=== PATIENT | female | born 1940 | race Caucasian/White ===

== ENCOUNTER 2019-11-09 13:19 | Inpatient (IN) | payer MEDICARE, OTHER ==
[~2019-11-09 13:19] MED LIST: ASPI81TA85 PO; AVEL1TAB2 PO; CALTTAB2 PO; CART240C PO; CENTTAB PO; CIPR500T89 PO; DOCU5LIQ PO; ETOD30CA PO; FLAG500T PO; HYDR-3644 PO; TYLE325T5 PO
[2019-11-09] MEDS ORDERED: ONDANSETRON 4MG/2ML VIAL IV ONE (13:45)
[2019-11-09] MEDS ORDERED: diazePAM 10MG/2ML SYRINGE (J3360 PER 5MG) IV ONE (14:00)
[2019-11-09] MEDS ORDERED: LISI10TA4 PO (14:13)
[2019-11-09] MEDS ORDERED: AMLO10TA PO (14:13)
[2019-11-09] MEDS ORDERED: DICL50TA2 PO (14:13)
[2019-11-09 14:16] LABS: BASO % 0.5 % (0.0-1.0); EOS # 0.1 10^3/uL (0.0-0.5); EOS % 1.1 % (0.0-3.0); HEMATOCRIT 39.5 % (36.0-47.0); HEMOGLOBIN 12.8 g/dl (12.0-15.5); LYMPH # 1.2 10^3/uL (1.5-5.0); LYMPH % 14.8 % (24.0-44.0); MEAN CORPUSCULAR HEMOGLOBIN 28.7 pg (27.0-33.0); MEAN CORPUSCULAR HGB CONC 32.4 g/dl (32.0-36.5); MEAN CORPUSCULAR VOLUME 88.6 fl (80.0-96.0); MONO # 0.4 10^3/uL (0.0-0.8); MONO % 5.4 % (0.0-5.0); NEUTROPHILS # 6.2 10^3/uL (1.5-8.5); NEUTROPHILS % 77.9 % (36.0-66.0); PLATELET COUNT, AUTOMATED 281 10^3/uL (150-450); RED BLOOD COUNT 4.46 10^6/uL (4.00-5.40)
[2019-11-09 14:26] LABS: INR 1.17; PROTHROMBIN TIME 14.6 SECONDS (11.8-14.0)
[2019-11-09 14:27] LABS: PARTIAL THROMBOPLASTIN TIME 27.5 SECONDS (25.0-38.4)
--- NOTE | 2019-11-09 14:36 | REP ---
CT brain: 11/09/2019. Indication: Dizziness. Technique: Unenhanced axial CT images of the brain were obtained from skull base to vertex with coronal reconstructions provided. Comparison: 02/09/2008. Findings: There is no acute intracranial hemorrhage, acute cortical infarction, mass effect, hydrocephalus or significant fluid within the visualized paranasal sinuses/mastoid air cells. Age-related volume loss is present. There are a few small patchy areas of cerebral hemisphere white matter hypoattenuation most consistent with chronic small vessel disease. Impression: No acute intracranial process. Electronically Signed by Dereje Rodrigez DO 11/09/2019 02:29 P
[2019-11-09 14:48] LABS: ALBUMIN 3.7 GM/DL (3.2-5.2); ALT/SGPT 22 U/L (12-78); BILIRUBIN,DIRECT 0.1 MG/DL (0.0-0.2); BILIRUBIN,TOTAL 0.4 MG/DL (0.2-1.0); CK-MB VALUE MASS 1.4 NG/ML (<3.6); CPK CREATINE PHOSPHOKINASE 69 U/L (26-192); LIPASE 151 U/L (73-393); MB/CK RELATIVE INDEX 2.03 (< OR =4); TOTAL PROTEIN 7.1 GM/DL (6.4-8.2); TROPONIN I < 0.02 NG/ML (< 0.10)
[2019-11-09] MEDS ORDERED: NS 1,000 ML IV ONE (15:00)
[2019-11-09] MEDS ORDERED: MECLIZINE 25 MG TABLET PO ONE (15:00)
--- NOTE | 2019-11-09 16:52 | IPNPDOC ---
Text Note Date of Service The patient was seen on 11/09/19. NOTE TIME OF SERVICE 635PM Ms. Copeland is a 79-year-old with history of HTN, osteoporosis, benign breast tumor, GERD, & diverticulitis who will be admitted for evaluation of vertigo and dizziness. - pending response to meclizine the day time team can decide if she needs an MRI/MRA of brain to r/o posterior CVA / PT consult Rest per 's H&P VS,Joan, I+O VS, Joan, I+O Laboratory Tests 11/09/19 13:54 Vital Signs Date Time Temp Pulse Resp B/P (MAP) Pulse Ox O2 Delivery O2 Flow Rate FiO2 11/09/19 15:19 85 18 99 Nasal Cannula 2.0 11/09/19 15:15 174/83 (113) 11/09/19 13:28 96.0 STACEY VILLAFANA MD Nov 09, 2019 16:52
[2019-11-09] MEDS ORDERED: ONDANSETRON 4MG/2ML VIAL IV PRN (17:30)
[2019-11-09] MEDS ORDERED: MOM 30ML SUSPENSION UDC PO PRN (17:30)
[2019-11-09] MEDS ORDERED: ACETAMINOPHEN TAB 650MG DOSE (2X325MG) PO PRN (17:30)
--- NOTE | 2019-11-09 17:49 | HPEPDOC ---
General Date of Admission Nov 09, 2019 at 16:50 Date of Service: Nov 09, 2019 Chief Complaint The patient is a 79-year-old female admitted with a reason for visit of dizziness and nausea Source: Patient Exam Limitations: No limitations Timing/Duration: Day(s) (1) Severity: Mild Associated Symptoms: Nausea, Dizziness History of Present Illness Pt is a 79 yo female with PMH of HTN presented to [facility] ER due to gradual onset dizziness that she noticed this morning upon awakening that has gradually worsened. She denies any vertigo/sensation or room spinning/self spinning. Reported that dizziness is associated with any movement changes, and that she also has nausea without vomiting. Pt never had this beforeDenies any hearing changes, tinnitus, ear pain, ear discharge, cough, rhinorrhea, congestion, or sinus pain. She reported never had this before. Denies any sick contact, covid contact, travel hx, fever, or chills. Pt denies hx of seasonal allergy Home Medications Scheduled Amlodipine Besylate (Norvasc) 10 Mg Tablet, 10 MG PO DAILY, (Reported) Aspirin (Aspir 81) 81 Mg Tablet.dr, 81 MG PO 2XW, (Reported) TAKES ON , Jesus/D3/Mag11/Zinc/Fighter Pilot/Chinmay/Bor (Caltrate 600+D Plus Tablet) 1 Each Tablet, 1 TAB PO DAILY, (Reported) Diclofenac Potassium (Diclofenac Potassium) 50 Mg Tablet, 50 MG PO BID, (Reported) MAY TAKE ONE ADDITIONAL TAB PRN Lisinopril/Hydrochlorothiazide (Lisinopril-Hctz 10-12.5 mg Tab) 1 Each Tablet, 1 TAB PO DAILY, (Reported) Multivit-Min/FA/Lycopen/Lutein (Centrum Silver Tablet) 1 Each Tablet, 1 TAB PO DAILY, (Reported) Scheduled PRN Acetaminophen (Acetaminophen) 325 Mg Tablet, 650 MG PO Q4HP PRN for PAIN, (Reported) Allergies Coded Allergies: amoxicillin (Verified Allergy, Unknown, 11/09/19) celecoxib (Verified Allergy, Unknown, 11/09/19) desloratadine (Verified Allergy, Unknown, 11/09/19) gabapentin (Verified Allergy, Unknown, 11/09/19) lactose (Verified Allergy, Unknown, 11/09/19) sulfamethoxazole (Verified Allergy, Unknown, 11/09/19) codeine (Verified Adverse Reaction, Unknown, 11/09/19) hallucination Past Medical History Medical History HTN Diverticulosis with hx of diverticulitis Community acquired Pneumonia with SIRS 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, 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 in [place] without further treatment required Chronic bilateral hip pain Ruptured disc Surgical History Laminectomy breast tumor removal, unspecified procedure in 1987 Unspecified heart tumor removal procedure in in [place] Social History * Smoker: Denies A-FIB/CHADSVASC A-FIB History Current/History of A-Fib/PAF?: No Review of Systems Constitutional: Reports: Other (dizziness without vertigo); Denies: Chills, Fever ENT: Reports: Other Symptoms (no hearing changes, tinnitus, or facial tenderness/pain); Denies: Sinus Congestion, Post Nasal Drip, Sore Throat Pulmonary: Denies: Dyspnea, Cough Cardiovascular: Denies: Chest Pain, Palpitations, Orthopnea, Paroxysmal Noc. Dyspnea Gastrointestinal: Reports: Nausea; Denies: Vomiting, Abdominal Pain, Diarrhea, Constipation, Hematochezia Genitourinary: Denies: Retention Neurological: Denies: Numbness, Incoordination, Change in speech, Confusion Physical Examination General Exam: Positive: Alert, Cooperative, No Acute Distress Eye Exam: Positive: PERRLA, Conjunctiva & lids normal, EOMI; Negative: Sclera icteric ENT Exam: Positive: Atraumatic, Mucous membr. moist/pink, Pharynx Normal, Tongue Midline, Nares Patent, Ext Auditory Canal Nml, Pinna Normal, Other ENT (moderate amount of effusions behind b/l TM, TM non-erythematous. No tragus or pinna tenderness); Negative: Pharyngeal Edema Neck Exam: Positive: Supple Chest Exam: Positive: Clear to auscultation, Normal air movement; Negative: Rales, Rhonchi, Wheezing, Diminished Heart Exam: Positive: Rate Normal, Regular Rhythm, Normal S1, Normal S2; Negative: Murmurs Abdomen Exam: Positive: Normal bowel sounds, Soft Extremity Exam: Negative: Cyanosis, Edema, Swelling Skin Exam: Positive: Nl turgor and temperature Neuro Exam: Positive: Normal Speech, Strength at 5/5 X4 ext, Normal Tone, Sensation Intact, Cranial Nerves 3-12 NL Psych Exam: Positive: Mental status NL, Mood NL, Memory Intact, Oriented x 3 Vital Signs Vital Signs Date Time Temp Pulse Resp B/P (MAP) Pulse Ox O2 Delivery O2 Flow Rate FiO2 11/09/19 15:19 85 18 99 Nasal Cannula 2.0 11/09/19 15:15 174/83 (113) 11/09/19 13:28 96.0 Laboratory Data Labs 24H Laboratory Tests 2 11/09/19 13:54: Immature Granulocyte % (Auto) 0.3, Neutrophils (%) (Auto) 77.9H, Lymphocytes (%) (Auto) 14.8L, Monocytes (%) (Auto) 5.4H, Eosinophils (%) (Auto) 1.1, Basophils (%) (Auto) 0.5, Neutrophils # (Auto) 6.2, Lymphocytes # (Auto) 1.2L, Monocytes # (Auto) 0.4, Eosinophils # (Auto) 0.1, Basophils # (Auto) 0.0, Nucleated Red Blood Cells % (auto) 0.0, Prothrombin Time 14.6H, Prothromb Time International Ratio 1.17, Activated Partial Thromboplast Time 27.5, Lactic Acid Level 2.4*H, Total Bilirubin 0.4, Direct Bilirubin 0.1, Aspartate Amino Transf (AST/SGOT) 23, Alanine Aminotransferase (ALT/SGPT) 22, Alkaline Phosphatase 58, Total Creatine Kinase 69, Creatine Kinase MB 1.4, Creatine Kinase MB Relative Index 2.03, Troponin I < 0.02, Total Protein 7.1, Albumin 3.7, Albumin/Globulin Ratio 1.1L, Lipase 151 11/09/19 14:06: POC Glucose (Misc Panel) 153H, POC Sodium (Misc Panel) 140, POC Potassium (Misc Panel) 3.7, POC Chloride (Misc Panel) 100, POC Total CO2 (Misc Panel) 27.0, POC Blood Urea Nitrogen (Misc Panel 29H, POC Ionized Calcium (Misc Panel) 5.0, POC Creatinine (Misc Panel) 1.0, POC Hematocrit (Misc Panel) 42.0 11/09/19 16:46: Urine Color YELLOW, Urine Appearance CLEAR, Urine pH 8.0, Urine Specific [place] 1.012, Urine Protein NEGATIVE, Urine Glucose (UA) NEGATIVE, Urine Ketones NEGATIVE, Urine Blood NEGATIVE, Urine Nitrite NEGATIVE, Urine Bilirubin NEGATIVE, Urine Urobilinogen 0.2, Urine Leukocyte Esterase NEGATIVE, Urine WBC (Auto) 1, Urine RBC (Auto) 1, Urine Hyaline Casts (Auto) 0, Urine Bacteria (Auto) NEGATIVE, Urine Squamous Epithelial Cells 0, Urine Mucus (Auto) SMALL, Urine Sperm (Auto) CBC/BMP Laboratory Tests 11/09/19 13:54 Assessment/Plan 1. Bilateral serous otitis media. Mod amount of effusion behind TM associated with dizziness without vertigo. Nausea without emesis. Meclizine daily, fall precaution, PT/OT. Hold home med diclofenac, and aspirin 2. Dizziness, without vertigo, likely 2/2 bilateral serous otitis media vs multiple NSAID use at home. Less likely BPPV or labryinitis as without true vertigo. Pt is noted to be on diclofenac and aspirin at home. Hold aspirin, and diclofenac. TSH and liver profile ordered. CT head neg. Fall precaution, activity per PT/OT. Consider repeat head CT vs MRI if dizziness does not improve or neurological symptoms occur. 2. HTN. Cont home med Lisinopril-HCTZ and amlodipine 3. GERD. Pt not on home medication at home. Tums PRN, may start omeprazole 4. Lactic acidosis, likely from dual NSAID use. Hold home aspirin and diclofenac. Repeat lactic acid level. DVT prophylaxis: heparin SC GI prophylaxis: not indicated Plan / VTE VTE Prophylaxis Ordered?: Yes Plan IVF: Discontinue Diet: Continue Current Activity: Continue Current Therapy: PT, OT Diagnostics: Repeat Labs in AM Anticipated Discharge: Home GME ATTESTATION GME ATTESTATION My faculty preceptor for this patient encounter was physically present during the encounter and was fully available. All aspects of the patient interview, examination, medical decision making process, and medical care plan development were reviewed and approved by the faculty preceptor. The faculty preceptor is aware and concurs with the plan as stated in the body of this note and will attest to such by his/her cosignature. GME ATTESTATION GME ATTESTATION My faculty preceptor for this patient encounter was physically present during the encounter and was fully available. All aspects of the patient interview, examination, medical decision making process, and medical care plan development were reviewed and approved by the faculty preceptor. The faculty preceptor is aware and concurs with the plan as stated in the body of this note and will attest to such by his/her cosignature. ATTENDING NOTE I reviewed the H&P and agree with the findings as documented. Pls see my addendum from 11/09/19 BACILIO WU DO Nov 09, 2019 17:49 STACEY VILLAFANA MD Nov 09, 2019 19:06
[2019-11-09] MEDS ORDERED: lisinopriL 10 MG TAB PO SCH (18:15)
[2019-11-09] MEDS ORDERED: LISINOPRIL *2.5 MG* TAB PO SCH (18:15)
[2019-11-09] MEDS ORDERED: LISI10TA15 PO (18:19)
[2019-11-09] MEDS ORDERED: CENT1TAB PO (18:21)
[2019-11-09] MEDS ORDERED: CALTTAB6 PO (18:21)
[2019-11-09] MEDS ORDERED: ACET1TAB55 PO (18:21)
[2019-11-09] MEDS ORDERED: ASPI81TA85 PO (18:21)
[2019-11-09 18:24] VITALS: BP 146/82
[2019-11-09] MEDS ORDERED: CALCIUM CARBONATE 500 MG CHEW U/D PO PRN (18:45)
[2019-11-09 20:22] LABS: CK-MB VALUE MASS 1.5 NG/ML (<3.6); CPK CREATINE PHOSPHOKINASE 52 U/L (26-192); MAGNESIUM LEVEL 1.7 MG/DL (1.8-2.4); MB/CK RELATIVE INDEX 2.88 (< OR =4); TROPONIN I < 0.02 NG/ML (< 0.10)
[2019-11-09] MEDS ORDERED: ENOXAPARIN 40MG/0.4ML SYRINGE (J1650 PER 10MG) SC SCH (21:00)
[2019-11-09] MEDS ORDERED: **NOTE PATIENT COMMENT** MISC XX SCH (21:00)
[2019-11-09 22:00] VITALS: BP 142/77
[2019-11-09 22:09] VITALS: BP_SYST 121; BP_SYST 142; BP_SYST 154; BP_DIAS 75; BP_DIAS 78; BP_DIAS 91
[2019-11-09] MEDS ORDERED: RAMELTEON 8 MG TAB (ROZEREM) PO SCH (22:30)
[2019-11-10 06:00] VITALS: BP_SYST 140; BP_SYST 143; BP_SYST 145; BP_DIAS 64; BP_DIAS 73; BP_DIAS 74; BP_DIAS 76
[2019-11-10 06:11] LABS: HEMATOCRIT 36.7 % (36.0-47.0); HEMOGLOBIN 11.8 g/dl (12.0-15.5); MEAN CORPUSCULAR HEMOGLOBIN 29.1 pg (27.0-33.0); MEAN CORPUSCULAR HGB CONC 32.2 g/dl (32.0-36.5); MEAN CORPUSCULAR VOLUME 90.4 fl (80.0-96.0); PLATELET COUNT, AUTOMATED 257 10^3/uL (150-450); RED BLOOD COUNT 4.06 10^6/uL (4.00-5.40); WHITE BLOOD COUNT 5.9 10^3/uL (4.0-10.0)
[2019-11-10 06:34] LABS: CALCIUM LEVEL 9.2 MG/DL (8.8-10.2); CREATININE FOR GFR 1.08 MG/DL (0.55-1.30); GLOMERULAR FILTRATION RATE 52.2 (>39); POTASSIUM SERUM 3.9 MEQ/L (3.5-5.1)
[2019-11-10] MEDS ORDERED: MECLIZINE 12.5 MG TAB PO PRN (08:00)
[2019-11-10 08:37] VITALS: BP 139/70
[2019-11-10] MEDS ORDERED: amLODIPine 10 MG TAB PO SCH (09:00)
[2019-11-10] MEDS ORDERED: MECLIZINE 25 MG TABLET PO SCH (09:00)
[2019-11-10] MEDS ORDERED: MULTIVITAMINS/MINERALS THERAP 1 TAB PO SCH (09:00)
[2019-11-10] MEDS ORDERED: LIDOCAINE 5% (LIDODERM) PATCH TD PRN (09:00)
[2019-11-10] MEDS ORDERED: lisinopriL 10 MG TAB PO SCH (09:00)
[2019-11-10] MEDS ORDERED: hydroCHLOROthiazide 12.5 MG CAPSULE PO SCH (09:00)
[2019-11-10] MEDS ORDERED: MECL12.589 PO (09:30)
--- NOTE | 2019-11-10 12:27 | DS.PDOC ---
Discharge Summary General Date of Admission Nov 09, 2019 at 16:50 Date of Discharge 11/10/19 Discharge Summary PROCEDURES PERFORMED DURING STAY: None. ADMITTING DIAGNOSES: 1. Vertigo. DISCHARGE DIAGNOSES: 1. Benign positional vertigo, hypertension. COMPLICATIONS/CHIEF COMPLAINT: Vertigo. HISTORY OF PRESENT ILLNESS: Pt is a 79 yo female with PMH of HTN presented to [facility] ER due to gradual onset dizziness that she noticed this morning upon awakening that has gradually worsened. She denies any vertigo/sensation or room spinning/self spinning. Reported that dizziness is associated with any movement changes, and that she also has nausea without vomiting. Pt never had this beforeDenies any hearing changes, tinnitus, ear pain, ear discharge, cough, rhinorrhea, congestion, or sinus pain. She reported never had this before. Denies any sick contact, covid contact, travel hx, fever, or chills. Pt denies hx of seasonal allergy . HOSPITAL COURSE: Patient was admitted to fourth floor with telemetry for observation. Patient's symptoms IMPROVED. She does not have any dizziness or vertigo at the present time. Her CT of the head was essentially negative. Most likely has symptoms of benign positional vertigo and once physical therapy eval is done and cleared, she will be discharged home on by mouth and covered when necessary. Patient had been advised to follow with her PCP in one week and continue all home meds.. DISCHARGE MEDICATIONS: Please see below. ALLERGIES: Please see below. PHYSICAL EXAMINATION ON DISCHARGE: VITAL SIGNS: Please see below. GENERAL: Within normal limit HEENT: PERRLA. Extraocular muscles intact NECK: Supple. Negative JVD, negative lymphadenopathy CARDIOVASCULAR EXAMINATION: S1, S2, regular RESPIRATORY EXAMINATION: Clear to A&P ABDOMINAL EXAMINATION: Benign EXTREMITIES: No clubbing, cyanosis, edema SKIN: Normal NEUROLOGICAL EXAMINATION: . No focal motor sensory deficit PSYCHIATRIC EXAMINATION: Normal LABORATORY DATA: Please see below. IMAGING: CT head: Negative PROGNOSIS: Good ACTIVITY: As tolerated. DIET: As tolerated DISCHARGE PLAN: Discharged home DISPOSITION: . Home DISCHARGE INSTRUCTIONS: 1. As per discharge instructions. ITEMS TO FOLLOWUP ON ON OUTPATIENT: 1. Follow with PCP in one week. DISCHARGE CONDITION: Stable. TIME SPENT ON DISCHARGE: 20 minutes. Vital Signs/I&Os Vital Signs Date Time Temp Pulse Resp B/P (MAP) Pulse Ox O2 Delivery O2 Flow Rate FiO2 11/10/19 08:37 139/70 11/10/19 06:00 66 71 86 11/10/19 06:00 98.2 18 96 Room Air 11/09/19 15:19 2.0 I&O- Last 24 Hours up to 6 AM 11/10/19 06:00 Intake Total 1700 ml Output Total 950 ml Balance 750 ml Laboratory Data Labs 24H Laboratory Tests 2 11/09/19 13:54: Immature Granulocyte % (Auto) 0.3, Neutrophils (%) (Auto) 77.9H, Lymphocytes (%) (Auto) 14.8L, Monocytes (%) (Auto) 5.4H, Eosinophils (%) (Auto) 1.1, Basophils (%) (Auto) 0.5, Neutrophils # (Auto) 6.2, Lymphocytes # (Auto) 1.2L, Monocytes # (Auto) 0.4, Eosinophils # (Auto) 0.1, Basophils # (Auto) 0.0, Nucleated Red Blood Cells % (auto) 0.0, Prothrombin Time 14.6H, Prothromb Time International Ratio 1.17, Activated Partial Thromboplast Time 27.5, Lactic Acid Level 2.4*H, Total Bilirubin 0.4, Direct Bilirubin 0.1, Aspartate Amino Transf (AST/SGOT) 23, Alanine Aminotransferase (ALT/SGPT) 22, Alkaline Phosphatase 58, Total Creatine Kinase 69, Creatine Kinase MB 1.4, Creatine Kinase MB Relative Index 2.03, Troponin I < 0.02, Total Protein 7.1, Albumin 3.7, Albumin/Globulin Ratio 1.1L, Lipase 151 11/09/19 14:06: POC Glucose (Misc Panel) 153H, POC Sodium (Misc Panel) 140, POC Potassium (Misc Panel) 3.7, POC Chloride (Misc Panel) 100, POC Total CO2 (Misc Panel) 27.0, POC Blood Urea Nitrogen (Misc Panel 29H, POC Ionized Calcium (Misc Panel) 5.0, POC Creatinine (Misc Panel) 1.0, POC Hematocrit (Misc Panel) 42.0 11/09/19 16:46: Urine Color YELLOW, Urine Appearance CLEAR, Urine pH 8.0, Urine Specific [place] 1.012, Urine Protein NEGATIVE, Urine Glucose (UA) NEGATIVE, Urine Ketones NEGATIVE, Urine Blood NEGATIVE, Urine Nitrite NEGATIVE, Urine Bilirubin NEGATIVE, Urine Urobilinogen 0.2, Urine Leukocyte Esterase NEGATIVE, Urine WBC (Auto) 1, Urine RBC (Auto) 1, Urine Hyaline Casts (Auto) 0, Urine Bacteria (Auto) NEGATIVE, Urine Squamous Epithelial Cells 0, Urine Mucus (Auto) SMALL, Urine Sperm (Auto) 11/09/19 19:27: Lactic Acid Level 1.9, Total Creatine Kinase 52, Creatine Kinase MB 1.5, Creatine Kinase MB Relative Index 2.88, Troponin I < 0.02, Magnesium Level 1.7L, Thyroid Stimulating Hormone (TSH) 1.060 11/10/19 05:54: Nucleated Red Blood Cells % (auto) 0.0, Anion Gap 4L, Glomerular Filtration Rate 52.2, Calcium Level 9.2 CBC/BMP Laboratory Tests 11/09/19 13:54 11/10/19 05:54 Discharge Medications Scheduled Amlodipine Besylate (Norvasc) 10 Mg Tablet, 10 MG PO DAILY, (Reported) Aspirin (Aspir 81) 81 Mg Tablet.dr, 81 MG PO 2XW, (Reported) TAKES ON Jesus/D3/Mag11/Zinc/Cable Former/Chinmay/Bor (Caltrate 600+D Plus Tablet) 1 Each Tablet, 1 TAB PO DAILY, (Reported) Diclofenac Potassium (Diclofenac Potassium) 50 Mg Tablet, 50 MG PO BID, (Reported) MAY TAKE ONE ADDITIONAL TAB PRN Lisinopril/Hydrochlorothiazide (Lisinopril-Hctz 10-12.5 mg Tab) 1 Each Tablet, 1 TAB PO DAILY, (Reported) Multivit-Min/FA/Lycopen/Lutein (Centrum Silver Tablet) 1 Each Tablet, 1 TAB PO DAILY, (Reported) Scheduled PRN Acetaminophen (Acetaminophen) 325 Mg Tablet, 650 MG PO Q4HP PRN for PAIN, (Reported) Meclizine HCl (Meclizine HCl) 12.5 Mg Tablet, 12.5 MG PO Q6HP PRN for DIZZINESS Allergies Coded Allergies: amoxicillin (Verified Allergy, Unknown, 11/09/19) celecoxib (Verified Allergy, Unknown, 11/09/19) desloratadine (Verified Allergy, Unknown, 11/09/19) gabapentin (Verified Allergy, Unknown, 11/09/19) lactose (Verified Allergy, Unknown, 11/09/19) sulfamethoxazole (Verified Allergy, Unknown, 11/09/19) codeine (Verified Adverse Reaction, Unknown, 11/09/19) hallucination LOUIS,GRECIA MD Nov 10, 2019 12:27
--- NOTE | 2019-11-10 16:04 | ECGEPIP ---
[facility] - ED Test Date: 2019-11-09 Pat Name: GARY SPANGLER Department: Room: [place] [address] Gender: Female Director Of Acquisitions: omar : 1940 Requested By: DAPHNE AJ Order Number: [id number] Reading MD: Maddi Arboleda Measurements Intervals [place] Rate: 81 P: 80 AR: 156 QRS: 31 QRSD: 102 T: 47 QT: 367 QTc: 427 Interpretive Statements SINUS RHYTHM POSSIBLE INFERIOR MYOCARDIAL INFARCTION, OF INDETERMINATE AGE NO PRIOR Electronically Signed on 11-10-2019 16:03:47 EDT by Maddi Arboleda
== END 2019-11-10 14:40 | disposition home health service (06) | DRG 149 ==
LOC: M ED 13:19 → EDBD 13:19 → M ED INP 16:50 → ENRESERV 17:32 → M MSPAV 18:22
PROVIDERS: ADMIT Internal Medicine; ATTEND Internal Medicine
DX: H81.13 Benign paroxysmal vertigo, bilateral (principal); E87.2 Acidosis; R42 Dizziness and giddiness; K21.9 Gastro-esophageal reflux disease without esophagitis; I10 Essential (primary) hypertension; M25.551 Pain in right hip; M25.552 Pain in left hip; M81.0 Age-related osteoporosis without current pathological fracture; Z79.82 Long term (current) use of aspirin; Z88.0 Allergy status to penicillin; Z88.2 Allergy status to sulfonamides; Z88.5 Allergy status to narcotic agent; Z88.8 Allergy status to other drugs, medicaments and biological substances; Z79.899 Other long term (current) drug therapy

== ENCOUNTER 2019-12-16 08:05 | Emergency (ER) | payer MEDICARE ==
[~2019-12-16 08:05] MED LIST changes: +ACET1TAB55 PO; +AMLO10TA PO; +ASPI81TA86 PO; +CALTTAB6 PO; +CENT1TAB PO; +DICL50TA2 PO; +LISI10TA15 PO; +LISI10TA4 PO; +MECL12.589 PO
[2019-12-16 09:43] LABS: BASO % 0.2 % (0.0-1.0); EOS % 0.3 % (0.0-3.0); HEMATOCRIT 41.4 % (36.0-47.0); HEMOGLOBIN 13.4 g/dl (12.0-15.5); LYMPH # 0.4 10^3/uL (1.5-5.0); LYMPH % 6.1 % (24.0-44.0); MEAN CORPUSCULAR HGB CONC 32.4 g/dl (32.0-36.5); MEAN CORPUSCULAR VOLUME 89.6 fl (80.0-96.0); MONO # 0.2 10^3/uL (0.0-0.8); MONO % 2.6 % (0.0-5.0); NEUTROPHILS # 5.9 10^3/uL (1.5-8.5); NEUTROPHILS % 90.5 % (36.0-66.0); PLATELET COUNT, AUTOMATED 217 10^3/uL (150-450); RED BLOOD COUNT 4.62 10^6/uL (4.00-5.40); WHITE BLOOD COUNT 6.5 10^3/uL (4.0-10.0)
--- NOTE | 2019-12-16 09:55 | REP ---
CT BRAIN WITHOUT CONTRAST: HISTORY: Sudden onset dizziness. Comparison study November 09, 2019 and February [address] FINDINGS: Preliminary digital maintenance and engineering manager radiograph is unremarkable. Bone window settings demonstrate an intact bony calvarium. The paranasal sinuses are clear. There is vascular calcification in the distal internal carotid arteries bilaterally. Moderate generalized volume loss is again seen unchanged. There are small vessel atherosclerotic changes. There is no evidence of intracranial hemorrhage. No mass, extra-axial fluid collection, or midline shift is observed. Roth-white differentiation pattern is intact. IMPRESSION: Vascular calcification, small vessel changes and generalized volume loss. No acute intracranial abnormality. Electronically Signed by Rosendo Nuñez MD 12/16/2019 04:15 P
--- NOTE | 2019-12-16 12:41 | REPVR ---
PROCEDURE INFORMATION: Exam: MR Head Without Contrast Exam date and time: 12/16/2019 11:58 AM Age: 79 years old Clinical indication: Dizziness; Additional info: Dizziness R/O cerebellar CVA TECHNIQUE: Imaging protocol: MR of the head without contrast. COMPARISON: CT Head without contrast 12/16/2019 8:19 AM FINDINGS: Brain: There is no extra-axial collection or intra-axial mass. There are scattered foci of T2/FLAIR hyperintensity within the periventricular and subcortical white matter, nonspecific but typically small-vessel ischemia in this age group. There is no diffusion restriction. Ventricles: Prominence of the ventricular system is commensurate with volume loss. Bones/joints: Unremarkable. Sinuses: Normal as visualized. No acute sinusitis. Mastoid air cells: Normal as visualized. No mastoid effusion. Orbits: Unremarkable. Soft tissues: Unremarkable. IMPRESSION: No acute findings. Electronically signed by: Sherice Mike On 12/16/2019 12:41:48 PM
[2019-12-16 14:34] VITALS: BP 141/67
[2019-12-16] MEDS ORDERED: [UNRECOGNIZED DRUG - OTHER] XX (14:37)
[2019-12-16] MEDS ORDERED: [UNRECOGNIZED DRUG - OTHER] XX (14:40)
--- NOTE | 2019-12-17 07:16 | ECGEPIP ---
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
== END 2019-12-16 15:51 | disposition home or self-care (01) ==
LOC: M ED 08:05 → EDBD 08:05 → M ED 15:51
DX: H81.10 Benign paroxysmal vertigo, unspecified ear (principal); I10 Essential (primary) hypertension; K57.92 Diverticulitis of intestine, part unspecified, without perforation or abscess without bleeding; M51.37 Other intervertebral disc degeneration, lumbosacral region; Z88.5 Allergy status to narcotic agent; Z91.011 Allergy to milk products; Z88.2 Allergy status to sulfonamides; Z88.0 Allergy status to penicillin; Z88.8 Allergy status to other drugs, medicaments and biological substances; Z79.899 Other long term (current) drug therapy; Z79.82 Long term (current) use of aspirin

== ENCOUNTER 2019-12-18 10:49 | Outpatient (RCR) | payer MEDICARE ==
[~2019-12-18 10:49] MED LIST changes: +[UNRECOGNIZED DRUG - OTHER] XX; +[UNRECOGNIZED DRUG - OTHER] XX
== END 2019-12-27 ==
LOC: M PT 10:49
PROVIDERS: ATTEND Internal Medicine
DX: H81.12 Benign paroxysmal vertigo, left ear (principal)

== ENCOUNTER → 2020-12-03 | Outpatient (REF) | payer MEDICARE ==
[~2020-12-03] MED LIST changes: +LISI10TA22 PO; -LISI10TA4 PO; +MECL-136 PO; -MECL12.589 PO
[2020-12-03 17:58] LABS: PHOSPHORUS LEVEL 3.4 MG/DL (2.5-4.9)
[2020-12-03 18:13] LABS: PTH INTACT 43.1 PG/ML (18.5-88.0)
== END ==
LOC: M LAB REF 16:30
PROVIDERS: ATTEND Nurse Practitioner Adult Health
DX: N18.32 Chronic kidney disease, stage 3b (principal)

== ENCOUNTER → 2023-03-16 | Outpatient (REF) | payer MEDICARE, OTHER ==
[~2023-03-16] MED LIST changes: -LISI10TA15 PO; +LISI10TA24 PO
== END ==
LOC: M LAB REF 16:02
PROVIDERS: ATTEND Nurse Practitioner Family
DX: N39.0 Urinary tract infection, site not specified (principal)

== ENCOUNTER 2023-06-29 16:36 | Emergency (ER) | payer OTHER ==
[~2023-06-29] VITALS: Ht 160 cm; Wt 62.4 kg
[2023-06-29] MEDS ORDERED: MECLIZINE 25 MG TABLET PO ONE (17:20)
[2023-06-29 17:27] LABS: BASO % 0.5 % (0.0-1.0); EOS # 0.1 10^3/uL (0.0-0.5); EOS % 1.9 % (0.0-3.0); HEMATOCRIT 42.2 % (36.0-47.0); HEMOGLOBIN 13.6 g/dl (12.0-15.5); LYMPH # 1.1 10^3/uL (1.5-5.0); LYMPH % 16.7 % (24.0-44.0); MEAN CORPUSCULAR HEMOGLOBIN 29.1 pg (27.0-33.0); MEAN CORPUSCULAR HGB CONC 32.2 g/dl (32.0-36.5); MEAN CORPUSCULAR VOLUME 90.2 fl (80.0-96.0); MONO # 0.6 10^3/uL (0.0-0.8); NEUTROPHILS # 4.5 10^3/uL (1.5-8.5); NEUTROPHILS % 71.6 % (36.0-66.0); PLATELET COUNT, AUTOMATED 255 10^3/uL (150-450); RED BLOOD COUNT 4.68 10^6/uL (4.00-5.40); WHITE BLOOD COUNT 6.3 10^3/uL (4.0-10.0)
[2023-06-29 17:44] LABS: MAGNESIUM LEVEL 1.8 MG/DL (1.8-2.4)
[2023-06-29 17:48] LABS: THYROID STIMULATING HORMONE 2.003 uIU/ML (0.55-4.78)
[2023-06-29] MEDS ORDERED: MECL-209 PO (20:49)
[2023-06-29 20:57] VITALS: BP 136/75; TEMP 97; O2SAT 95
== END 2023-06-29 20:58 | disposition home or self-care (01) ==
LOC: M ED 16:36
DX: R42 Dizziness and giddiness (principal); I10 Essential (primary) hypertension; H81.10 Benign paroxysmal vertigo, unspecified ear; Z79.82 Long term (current) use of aspirin; Z79.899 Other long term (current) drug therapy; Z88.0 Allergy status to penicillin; Z88.1 Allergy status to other antibiotic agents; Z88.5 Allergy status to narcotic agent; Z88.8 Allergy status to other drugs, medicaments and biological substances

== ENCOUNTER → 2025-05-07 | Outpatient (REF) | payer OTHER, MEDICARE ==
[~2025-05-07] MED LIST changes: +AMLO-751 PO; -AMLO10TA PO; +MECL-209 PO
== END ==
LOC: M LAB REF 11:50
PROVIDERS: ATTEND Nurse Practitioner Family
DX: N39.0 Urinary tract infection, site not specified (principal); R41.82 Altered mental status, unspecified

== ENCOUNTER → 2025-05-15 | Outpatient (REF) | payer MEDICARE | LOC: M LAB REF 14:08 | PROVIDERS: ATTEND Nurse Practitioner Family | DX: N18.32 Chronic kidney disease, stage 3b (principal); F03.90 Unspecified dementia, unspecified severity, without behavioral disturbance, psychotic disturbance, mood disturbance, and anxiety ==